=== PATIENT | male | born 1940 | race Caucasian/White ===

== ENCOUNTER → 2017-06-22 | Outpatient (CLI) | payer MEDICARE ==
[~2017-06-22] MED LIST: ALLO-2 PO; AMLO-119 PO; AMLO-476 PO; AMLO-99 PO; ASCO-191 PO; ASPI-1471 PO; ASPI-715 PO; CALC500T76 PO; CALC600T63 PO; CHOL200038 PO; CLIN300C99 PO; CYA1000 PO; CYAN100082 PO; CYCL-277 PO; DEXL60CA6 PO; ERG400 PO; ESOM40CA42 PO; FEN145 PO; FINA5TAB67 PO; FISH OIL1 CAP PO; FOL1 PO; GLUC-199 PO; IBUP-1687 PO; LEV100 PO; LEVO200T50 PO; LISI20TA29 PO; MELA10TA2 PO; MELA3TAB14 PO; MELO-207 PO; METR45CR9 TP; MULT-1026 PO; MULT1CAP59 PO; OMEG-96 PO; OXYB10TA21 PO; PNEU0.5D3 IM; RANI-320 PO; RANI-324 PO; ROS10 PO; TAMS0.4C70 PO; TRAZ-156 PO; TRI50 PO; VITA200T7 PO; ZOLP-358 PO
[2017-06-22 08:30] LABS: PLATELET COUNT, AUTOMATED 275 K/uL (150-450)
[2017-06-22 08:56] LABS: INR 1.02
[2017-06-22 09:09] LABS: LDL CHOLESTEROL 94 mg/dl
== END ==
LOC: LAB 08:03
PROVIDERS: ATTEND Internal Medicine
DX: Z12.5 Encounter for screening for malignant neoplasm of prostate (principal); R23.8 Other skin changes; C73 Malignant neoplasm of thyroid gland; I10 Essential (primary) hypertension; E78.00 Pure hypercholesterolemia, unspecified; E89.0 Postprocedural hypothyroidism; G47.33 Obstructive sleep apnea (adult) (pediatric); M1A.09X0 Idiopathic chronic gout, multiple sites, without tophus (tophi); R10.9 Unspecified abdominal pain
CPT/HCPCS: 36415; 84439; 84443; 84481; 84550; 85025; 85610; 85730; G0103; 82040; 82247; 82310; 82374; 82435; 82465; 82565; 82947; 83718; 84075; 84132; 84153; 84155; 84295; 84450; 84460; 84478; 84520

== ENCOUNTER 2017-07-24 14:35 | Emergency (ER) | payer MEDICARE ==
[~2017-07-24 14:35] MED LIST changes: -CLIN300C99 PO
[2017-07-24 14:44] VITALS: BP 159/81
--- NOTE | 2017-07-24 15:11 | ER Report ---
History and Physical Time Seen By MD: 15:05 Hx. of Stated Complaint: PATIENT STATES THAT HE HAS HAD TOOTH PAIN ON THE LEFT BACK AND STARTED HAVING EAR PAIN AND RINGING IN HIS LEFT EAR TODAY HPI/ROS CHIEF COMPLAINT: left sided jaw swelling and dolan HISTORY OF PRESENT ILLNESS: PT had his teeth cleaned on thursday. PT takes one dose of abx prior to dental cleanings due to having a prosthetic hip. Pt states he had felt some cold and hot sensitivity to his lower left jaw with eating but no other symptoms until this am when he woke up with some swlling to his lower jaw and pain . no fevers. Pain radiating to left ear and is sharp REVIEW OF SYSTEMS: GEN: no fevers or chills Respiratory: No cough, no dyspnea. HEENT: + dental sensitivity, + jaw swelling Allergies: Uncoded Allergies: SCALLOPS (Allergy, Unknown, 06/12/14) Home Meds Active Scripts Clindamycin Hcl (CLINDAMYCIN HCL) 300 Mg Capsule, 300 MG PO TID, #30 CAPSULE Prov:KUSUM VILLALOBOS DO 07/24/17 Oxybutynin Chloride (DITROPAN XL) 10 Mg Tab.er.24, 1 TAB PO QDAY, #90 TAB 1 Refill Prov:PATRICK SAUCEDO MD 01/16/17 Ranitidine Hcl (RANITIDINE HCL) 300 Mg Tablet, 1 TAB PO QDAY, #90 TAB 1 Refill Prov:MAMIE PERES MD 11/24/16 Lisinopril (LISINOPRIL) 20 Mg Tablet, 1 TAB PO DAILY, #90 TAB 4 Refills Prov:MAMIE PERES MD 07/01/16 Allopurinol (Allopurinol) 300 Mg Tablet, 1 TAB PO DAILY for to prevent gout, # 90 TAB 4 Refills Prov:MAMIE PERES MD 07/01/16 Amlodipine Besylate (AMLODIPINE BESYLATE) 10 Mg Tablet, 1 TAB PO DAILY, #90 TAB 4 Refills Prov:MAMIE PERES MD 07/01/16 Rosuvastatin Calcium (CRESTOR) 10 Mg Tab, 1 TAB PO 3XW, #39 TAB 4 Refills Prov:MAMIE PERES MD 07/01/16 Levothyroxine Sodium (LEVOTHYROXINE SODIUM) 200 Mcg Tablet, 1 TAB PO DAILY, #90 TAB 3 Refills Prov:LUCASWeslyMELISSA LUO [employer]ILD[employer]-C 01/17/15 Reported Medications Glucosam Sul Na/Chondr [place] A Na (GLUCOSAMINE-CHONDROITIN TABLET) 1 Each Tablet, 1 EACH PO QDAY 06/19/16 Multivit&Min/Fa/Lycopene/[place] (BLADDER 2.2 TABLET) 1 Each Tablet, 2 EACH PO QDAY 06/19/16 Ascorbic Acid (VITAMIN C) 1,000 Mg Tablet, 2 TAB PO QDAY 06/19/16 Metronidazole (METRONIDAZOLE) 45 Gm Cream..g., 1 NURIA TP BID 06/19/16 Calcium Carbonate (CALCIUM) 600 Mg Tablet, 1 TAB PO QDAY 06/19/16 Cyanocobalamin (Vitamin B-12) (VITAMIN B-12) 1,000 Mcg Tablet, 1 TAB PO QDAY 06/19/16 Finasteride (FINASTERIDE) 5 Mg Tablet, 5 MG PO QDAY 04/07/16 Aspirin (ASPIR 81) 81 Mg Tablet.dr, 1 TAB PO QDAY, TAB 06/12/14 Discontinued Reported Medications Melatonin (MELATONIN) 10 Mg Tablet, 10 MG PO 06/30/17 Discontinued Scripts Tamsulosin Hcl (TAMSULOSIN HCL) 0.4 Mg Cap.er.24h, 1 CAP PO HS, #90 CAP 1 Refill Prov:MAMIE PERES MD 07/08/17 Trazodone Hcl (TRAZODONE HCL) 50 Mg Tablet, 0.5-1 TAB PO QHS Y for sleep, #90 TAB 1 Refill Prov:MAMIE PERES MD 12/18/16 Past Medical/Surgical History Pmhx: gout, vertigo, hyperlipid, htn, sleep apnea, gerd, oa, osteopenia, hypothyroid, thyroid ca, bladder ca Pshx: Tonsillectomy, hernia repair, left total hip, thyroidectomy Reviewed Nurses Notes: Yes Old Medical Records Reviewed: Yes Hx Smoking: No Smoking Status: Never Smoker Exposure to Second Hand Smoke?: No Hx Alcohol Use: Yes (OCC.) Constitutional Vital Sign - Last 24 Hours 07/24/17 14:44 Temp 97.9 Pulse 75 Resp 19 B/P (MAP) 159/81 Pulse Ox 96 O2 Delivery Room Air Physical Exam General Appearance: The patient is alert, has no immediate need for airway protection and no signs of toxicity. Eyes: Pupils equal and round no pallor or injection, EOMI ENT: no pharyngeal erythema or exudates, Mucous membranes are moist, TM are nl b/l with some cerumin in left canal but not completely blocked; No palpable abscess was identified on gum line. Pt does have multiple carries which have been filled. Respiratory: There are no retractions, lungs are clear to auscultation. Cardiovascular: Regular rate and rhythm. pulses are equal and symmetrical Neurological: Cranial nerves II-XII grossly intact, no sensory or motor loss Skin: Warm and dry, no rashes. Musculoskeletal: Neck is supple non tender, no vertebral tenderness DIFFERENTIAL DIAGNOSIS: After history and physical exam differential diagnosis was considered for dental abscess, dental caries Medical Decision Making ED Course/Re-evaluation ED Course Discussed with pt giving a dose of IV abx or go straight to oral medication. Will try oral medication and return if worsens. PT needs to follow up wtih his dentist on thursday for xrays and reevaluation for any possible abscess that is located under the tooth and not palpable on gum line. Decision to Disposition Date: Jul 24, 2017 Decision to Disposition Time: 15:22 Depart Departure Latest Vital Signs Vital Signs Date Time Temp Pulse Resp B/P (MAP) Pulse Ox O2 Delivery O2 Flow Rate FiO2 07/24/17 14:44 97.9 75 19 159/81 96 Room Air Impression: Primary Impression: Dental infection Condition: Condition Unchanged Disposition: HOME OR SELF-CARE Referrals: MAMIE PERES MD (PCP) New Scripts Clindamycin Hcl (CLINDAMYCIN HCL) 300 Mg Capsule 300 MG PO TID, #30 CAPSULE Prov: KUSUM VILLALOBOS DO 07/24/17 Departure Forms: ER Transition Record, Medications Reconciliation, Patient Portal Information Patient Instructions: Toothache (ED) Additional Instructions: You have an infection which most likely occurred after your dental cleaning. We are starting you on antibiotics, Clindamycin three times a day. Follow up with your dentist on Thursday. If symptoms worsen prior to Thursday then please return. KUSUM VILLALOBOS DO Jul 24, 2017 15:11
[2017-07-24] MEDS ORDERED: CLIN300C99 PO (15:29)
== END 2017-07-24 15:36 | disposition home or self-care (01) ==
LOC: ER 14:36
DX: K04.7 Periapical abscess without sinus (principal)
CPT/HCPCS: 99282

== ENCOUNTER → 2017-12-30 | Outpatient (CLI) | payer MEDICARE ==
[~2017-12-30] MED LIST changes: +CLIN300C99 PO; -RANI-324 PO; +RANI-366 PO; -TRAZ-156 PO; +TRAZ50TA34 PO
--- NOTE | 2017-12-30 16:37 | RADIOLOGY IMAGING REPORT ---
FACILITY: [facility] PATIENT NAME: Ed Neumann : 1940 MR: [id number] V: [id number] EXAM DATE: ORDERING PHYSICIAN: MAMIE PERES TECHNOLOGIST: Location: [facility] [place] Patient: Ed Neumann : 1940 Visit/Account:[id number] Date of Sevice: 12/30/2017 Exam type: TOE LEFT FOOT SECOND DIGIT History: contusion left 2nd toe Comparison: None. Findings: There is an avulsion fracture along the dorsal base of the distal phalanx of the left second toe best appreciated on the lateral view with approximate 1.2 mm diastases of the fracture fragments. There is plantar angulation of the distal phalanx at the DIP joint. IMPRESSION: 1. Avulsion fracture along the dorsal base of the distal phalanx of the left second toe with 1.2 mm diastases of the fracture fragments and plantar angulation of the distal phalanx of the DIP joint Report Dictated By: Miriam Villalpando MD at 12/30/2017 4:27 PM Report E-Signed By: Miriam Villalpando MD at 12/30/2017 4:32 PM WSN:[id number]
== END ==
LOC: RAD 15:38
PROVIDERS: ATTEND Internal Medicine
DX: S92.532A Displaced fracture of distal phalanx of left lesser toe(s), initial encounter for closed fracture (principal)

== ENCOUNTER → 2018-10-12 | Outpatient (CLI) | payer MEDICARE ==
[~2018-10-12] MED LIST changes: +AMLO-127 PO; -AMLO-99 PO; +FLUT16SP19 NS; +PANT40TA65 PO; -ROS10 PO; +ROSU10TA PO
== END ==
LOC: LAB 14:24
PROVIDERS: ATTEND Internal Medicine Endocrinology, Diabetes & Metabolism
DX: C73 Malignant neoplasm of thyroid gland (principal)
CPT/HCPCS: 36415; 84443